=== PATIENT | male | born 1995 | race Hispanic/Latino ===

== ENCOUNTER 2024-02-16 06:29 | Day surgery (SDC) | payer OTHER ==
[~2024-02-16 06:29] MED LIST: CELEBREX100 M1 PO
[2024-02-16] MEDS ORDERED: SODIUM CHLORIDE 0.9% 10 ML SYR ONE (06:34)
[2024-02-16] MEDS ORDERED: DEXAMETHASONE SODIUM PHOSPHATE PF 10 MG/ML SDV ONE (07:25)
[2024-02-16] MEDS ORDERED: LIDOCAINE HCL 1% (10MG/ML) 100 MG/10 ML MDV ONE (07:25)
[2024-02-16] MEDS ORDERED: SODIUM CHLORIDE 20 ML/VIAL SDV ONE (07:26)
[2024-02-16] MEDS ORDERED: Iopamidol 61% 5 ML SYR IV ONE (07:26)
[2024-02-16] MEDS ORDERED: MIDAZOLAM HCL 2 MG/2 ML VIAL ONE (08:04)
[2024-02-16 09:09] VITALS: BP 129/81
== END 2024-02-16 08:53 | disposition home or self-care (01) ==
LOC: ORM 06:29
PROVIDERS: ATTEND Student in an Organized Health Care Education/Training Program
DX: M54.16 Radiculopathy, lumbar region (principal); G89.4 Chronic pain syndrome; M54.9 Dorsalgia, unspecified
CPT/HCPCS: J1100; Q9967